=== PATIENT | female | born 1955 | race Caucasian/White ===

== ENCOUNTER → 2019-08-31 | Day surgery (SDC) | payer MEDICARE ==
[~2019-08-31] MED LIST: Lactated Ringers 1,000 ML IV SCH; Propofol 200 MG/20 ML SDV IV ONE; fentaNYL 100 MCG/2 ML SDV IV ONE
--- NOTE | 2019-08-31 13:24 | OR ---
DATE OF OPERATION: 08/31/2019 PREOPERATIVE DIAGNOSIS: SCREENING COLONOSCOPY. POSTOPERATIVE DIAGNOSIS: SCREENING COLONOSCOPY. SURGEON: Jorge Snider MD PROCEDURE: FULL-LENGTH COLONOSCOPY. ANESTHESIA: MAC. COMPLICATIONS: None. SPECIMEN: None. FINDINGS: 1. Normal full-length colonoscopy. 2. Poor prep. RECOMMENDATIONS: Routine colonoscopy per ACS guidelines. INDICATIONS: The patient was in for routine physical. She is due for a routine screening colonoscopy and it has been 10 years since her last procedure. DESCRIPTION OF PROCEDURE: The patient was prepped and draped, placed in the left lateral decubitus position. A lubricated Olympus colonoscope was inserted and with relative ease advanced to the cecum. We were able to get deep into the right colon where the patient had a lot of stool with a lot of particulate matter there. We multiple times tried to irrigate, the scope kept plugging, so it was hard to see most of the entire cecal pouch or certainly the appendiceal orifice. The patient's prep was poor throughout and some areas could be suctioned, but most had a lot of particulate matter which made the possibility of missing smaller lesions certainly viable. Upon withdrawal, throughout the entire colon, I could find no obvious polyps, masses, ulceration, or bleeding sites. No vascular abnormalities or signs of colitis. There were no diverticula. The rectal vault appeared benign. It was very shallow and flat. It was hard to retroflex safely, but upon direct withdrawal, no gross abnormalities were seen in the perianal region. Air was suctioned. The scope was removed without complication. THOMAS/LIZET /[id number]
== END ==
LOC: CC.SDS 09:48
PROVIDERS: ATTEND Family Medicine
DX: Z12.11 Encounter for screening for malignant neoplasm of colon (principal); E78.00 Pure hypercholesterolemia, unspecified; Z98.890 Other specified postprocedural states; Z88.8 Allergy status to other drugs, medicaments and biological substances; Z79.51 Long term (current) use of inhaled steroids; Z79.899 Other long term (current) drug therapy; Z82.49 Family history of ischemic heart disease and other diseases of the circulatory system; Z86.018 Personal history of other benign neoplasm
CPT/HCPCS: G0121; J2704; J3010; J7120